=== PATIENT | female | born 1960 | race Caucasian/White ===

== ENCOUNTER 2017-11-02 15:17 | Emergency (ER) | payer OTHER ==
[2017-11-02 15:46] VITALS: BP 139/87; PULSE 72; TEMP 98.2; BMI 32.1
--- NOTE | 2017-11-02 15:57 | PDOC ---
History of Present Illness - General History Source: Patient Exam Limitations: No Limitations - History of Present Illness Initial Comments: 11/02/17 16:16 The patient is a 57 year old female with a significant past medical history of breast CA (s/p right sided mastectomy with tissue flap reconstruction via tummy tuck) who presents to the ED with complaints of abdominal pain since last night. The patient reports a sudden onset sharp left upper quadrant pain last night. She states her left upper quadrant cramped up and felt like a knot. She reports 2 episodes of sharp left upper quadrant cramping last night. Since then , she states her left upper quadrant pain is now dull and constant. Patient has baseline altered sensation in the abdomen secondary to abdominal surgery in the past. Patient states she recently had a sinus cold and diarrhea last week, now resolved. Denies fever or chills. Denies nausea, vomiting, or diarrhea. Denies dysuria or change in urinary output. Denies chest pain or shortness of breath. Denies any other symptoms. <Altagracia Vigil - Last Filed: 11/02/17 16:30> <Piper Harding - Last Filed: 11/03/17 12:49> - General Chief Complaint: Pain Stated Complaint: LUQ ABD PAIN Time Seen by Provider: 11/02/17 15:36 Past History <Altagracia Vigil - Last Filed: 11/02/17 16:30> - Past Medical History Asthma: Yes Cancer: Yes (BREAST) COPD: No - Suicide/Smoking/Psychosocial Hx Smoking History: Never smoked Have you smoked in the past 12 months: No Information on smoking cessation initiated: No Hx Alcohol Use: No Drug/Substance Use Hx: No Substance Use Type: None <Piper Harding - Last Filed: 11/03/17 12:49> - Past Medical History Allergies/Adverse Reactions: Allergies Allergy/AdvReac Type Severity Reaction Status Date / Time meperidine HCl [From Demerol] Allergy Vomiting Verified 11/02/17 18:42 Home Medications: Ambulatory Orders NK [No Known Home Medication] 11/02/17 Review of Systems - Review of Systems Comments:: 11/02/17 16:17 GENERAL/CONSTITUTIONAL: No fever or chills. No weakness. HEAD, EYES, EARS, NOSE AND THROAT: No change in vision. No ear pain or discharge. No sore throat. CARDIOVASCULAR: No chest pain or shortness of breath. RESPIRATORY: No cough, wheezing, or hemoptysis. GASTROINTESTINAL: + abdominal pain/cramping. No nausea, vomiting, diarrhea or constipation. GENITOURINARY: No dysuria, frequency, or change in urination. MUSCULOSKELETAL: No joint or muscle swelling or pain. No neck or back pain. SKIN: No rash NEUROLOGIC: No headache, vertigo, loss of consciousness, or change in strength/ sensation. ENDOCRINE: No increased thirst. No abnormal weight change. HEMATOLOGIC/LYMPHATIC: No anemia, easy bleeding, or history of blood clots. ALLERGIC/IMMUNOLOGIC: No hives or skin allergy. All Other Systems: Reviewed and Negative <Altagracia Vigil - Last Filed: 11/02/17 16:30> *Physical Exam - Vital Signs Last Vital Signs Temp Pulse Resp BP Pulse Ox 98.2 F 72 20 139/87 99 11/02/17 15:17 11/02/17 15:17 11/02/17 15:17 11/02/17 15:17 11/02/17 15:17 - Physical Exam Comments: 11/02/17 16:32 GENERAL: Awake, alert, and fully oriented, in no acute distress HEAD: No signs of trauma EYES: PERRLA, EOMI, sclera anicteric, conjunctiva clear ENT: Auricles normal inspection, hearing grossly normal, nares patent, oropharynx clear without exudates. Moist mucosa NECK: Normal ROM, supple, no lymphadenopathy, JVD, or masses LUNGS: Breath sounds equal, clear to auscultation bilaterally. No wheezes, and no crackles HEART: Regular rate and rhythm, normal S1 and S2, no murmurs, rubs or gallops ABDOMEN: + Left upper quadrant tenderness with small palpable mass in the left upper quadrant . normoactive bowel sounds. No guarding, no rebound. EXTREMITIES: Normal range of motion, no edema. No clubbing or cyanosis. No cords, erythema, or tenderness NEUROLOGICAL: Normal speech SKIN: Warm, Dry, normal turgor, no rashes or lesions noted. <Altagracia Vigil - Last Filed: 11/02/17 16:30> - Vital Signs Last Vital Signs Temp Pulse Resp BP Pulse Ox 98.2 F 72 20 139/87 99 11/02/17 15:17 11/02/17 15:17 11/02/17 15:17 11/02/17 15:17 11/02/17 15:17 <Piper Harding - Last Filed: 11/03/17 12:49> ED Treatment Course - LABORATORY CBC & Chemistry Diagram: 11/02/17 16:30 11/02/17 16:30 <Piper Harding - Last Filed: 11/03/17 12:49> Medical Decision Making - Medical Decision Making 11/02/17 19:[address] Batres. Awaiting CT a/p to further evaluate LUQ mass. I suspect that she has a hernia, and based on her description of pain yesterday, she may have had bowel in the hernia that then subsequently reduced, as she is not in severe pain at present. She does have a localized small mass, though, will evaluate. <Piper Harding - Last Filed: 11/03/17 12:49> *DC/Admit/Observation/Transfer - Attestations Scribe Attestion: 11/02/17 16:17 Documentation prepared by Altagracia Vigil, acting as medical instructor for Piper Harding MD <Altagracia Vigil - Last Filed: 11/02/17 16:30> <Piper Harding - Last Filed: 11/03/17 12:49> Diagnosis at time of Disposition: Abdominal wall hernia - Discharge Dispostion Disposition: HOME Condition at time of disposition: Stable - Patient Instructions Additional Instructions: You can take Tylenol or Motrin if needed for pain. Your CAT scan workup was all normal however you do have a small hernia in the area where you had pain and it may have been the result of your pain however now it is okay. Follow-up with a surgeon for evaluation to have it repaired as it is at increased risk of getting stuck and causing further pain. If you need a surgeon call Dr. Mccracken 's phone number is [phone]. Call his office Friday morning for an appointment Return to the emergency department immediately with ANY new, persistent or worsening symptoms. Continue any medications as previously prescribed by your physician. You should follow up with your primary doctor as soon as possible regarding today's emergency department visit. . Please make sure your doctor reviews the results of your emergency evaluation. Thank you for coming to the Emergency Department today for your care. It was a pleasure to see you today. Please note that your evaluation is INCOMPLETE until you follow-up with your doctor.
[2017-11-02] MEDS ORDERED: SODIUM CHLORIDE 1,000 ML IV STA (16:05)
[2017-11-02 16:52] LABS: BASO % 0.6 % (0-2.0); HEMATOCRIT 39.9 % (32.4-45.2); HEMOGLOBIN 13.6 GM/dl (10.7-15.3); LYMPH % 27.8 % (8-40); MCH 30.1 pg (25.7-33.7); MCHC 34.1 g/dl (32.0-36.0); MEAN CELL VOLUME 88.2 fl (80-96); MEAN PLT VOLUME 7.5 fl (7.5-11.1); MONO % 10.1 % (3.8-10.2); NEUT % 59.5 % (42.8-82.8); PLATELET COUNT 376 K/MM3 (134-434); RBC 4.52 M/mm3 (3.60-5.2); WHITE BLOOD COUNT 8.3 K/mm3 (4.0-10.8)
[2017-11-02 16:56] LABS: ALBUMIN 3.9 g/dl (3.5-5.0); ALK PHOS 98 U/L (32-92); ANION GAP 7 (8-16); BILIRUBIN,TOTAL 0.5 mg/dl (0.2-1.0); BLOOD UREA NITROGEN 26 mg/dl (7-18); CALCIUM 9.6 mg/dl (8.4-10.2); CHLORIDE 104 mmol/L (98-107); CO2 27 mmol/L (22-28); CREATININE 0.7 mg/dl (0.6-1.3); GLUCOSE,RANDOM 94 mg/dl (74-106); POTASSIUM 4.2 mmol/L (3.5-5.1); SGOT/AST 24 U/L (10-42); SGPT/ALT 26 U/L (10-40); SODIUM 138 mmol/L (136-145); TOT PROT 7.5 g/dl (6.4-8.3)
--- NOTE | 2017-11-02 19:20 | PDOC ---
*Physical Exam - Vital Signs Last Vital Signs Temp Pulse Resp BP Pulse Ox 98.2 F 72 20 139/87 99 11/02/17 15:17 11/02/17 15:17 11/02/17 15:17 11/02/17 15:17 11/02/17 15:17 ED Treatment Course - LABORATORY CBC & Chemistry Diagram: 11/02/17 16:30 11/02/17 16:30 - ADDITIONAL ORDERS Additional order review: Laboratory Results 11/02/17 16:30 Sodium 138 Potassium 4.2 Chloride 104 Carbon Dioxide 27 Anion Gap 7 L BUN 26 H Creatinine 0.7 D Creat Clearance w eGFR > 60 Random Glucose 94 Calcium 9.6 Total Bilirubin 0.5 AST 24 ALT 26 Alkaline Phosphatase 98 H Total Protein 7.5 Albumin 3.9 11/02/17 16:30 RBC 4.52 MCV 88.2 MCHC 34.1 RDW 12.0 MPV 7.5 Neutrophils % 59.5 Lymphocytes % 27.8 Monocytes % 10.1 Eosinophils % 2.0 Basophils % 0.6 - Medications Given in the ED: ED Medications Discontinued Medications Generic Name Dose Route Start Last Admin Trade Name Freq PRN Reason Stop Dose Admin Sodium Chloride 1,000 mls @ 1,000 mls/hr 11/02/17 16:05 11/02/17 16:42 Normal Saline - IV 11/02/17 17:04 1,000 mls/hr ASDIR STA Administration Progress Note - Progress Note Progress Note: Care of this patient was transferred to mo from Dr. Harding at 1900 hrs. Patient is a 57-year-old female who comes in complaining of some nonspecific lower abdominal pain. Patient has a workup that is nearly complete with the exception of a CAT scan. The CAT scan is to rule out incarcerated hernia. We'll follow-up results of CAT scan plan is patient will be discharged if CAT scan shows no acute pathology 19:50 CAT scan of the abdomen is negative for any acute pathology Patient will be discharged home and follow-up with her primary care doctor. *DC/Admit/Observation/Transfer Diagnosis at time of Disposition: Abdominal wall hernia - Discharge Dispostion Disposition: HOME Admit: No - Referrals - Patient Instructions Additional Instructions: You can take Tylenol or Motrin if needed for pain. Your CAT scan workup was all normal however you do have a small hernia in the area where you had pain and it may have been the result of your pain however now it is okay. Follow-up with a surgeon for evaluation to have it repaired as it is at increased risk of getting stuck and causing further pain. If you need a surgeon call Dr. Mccracken 's phone number is [phone]. Call his office Friday morning for an appointment Return to the emergency department immediately with ANY new, persistent or worsening symptoms. Continue any medications as previously prescribed by your physician. You should follow up with your primary doctor as soon as possible regarding today's emergency department visit. . Please make sure your doctor reviews the results of your emergency evaluation. Thank you for coming to the Emergency Department today for your care. It was a pleasure to see you today. Please note that your evaluation is INCOMPLETE until you follow-up with your doctor. - Post Discharge Activity
== END 2017-11-02 20:03 | disposition home or self-care (01) ==
LOC: FER 15:17
PROC: 3E0337Z Introduction of Electrolytic and Water Balance Substance into Peripheral Vein, Percutaneous Approach (ICD-10-PCS; principal; 2017-11-02)
DX: K43.9 Ventral hernia without obstruction or gangrene (principal)
CPT/HCPCS: 36415; 74177-TC; 80053; 85025; 99282-25

== ENCOUNTER 2019-01-27 21:17 | Emergency (ER) | payer OTHER ==
[2019-01-27 21:28] VITALS: BP 134/99; PULSE 73; TEMP 98.5; BMI 30.2
[2019-01-27] MEDS ORDERED: predniSONE 20 MG TABLET (UD) PO ONE (21:51)
[2019-01-27] MEDS ORDERED: KETOROLAC TROMETHAMINE 60 MG/2 ML VIAL IM ONE (21:51)
[2019-01-27] MEDS ORDERED: CYCLOBENZAPRINE HCL 10 MG TABLET (FP) PO ONE (21:52)
--- NOTE | 2019-01-27 21:54 | PDOC ---
Documentation entered by Pankaj Gutiérrez SCRIBE, acting as scribe for Libby Stanford MD. Libby Stanford MD: This documentation has been prepared by the Brock mcgee Daniel, SCRIBE, under my direction and personally reviewed by me in its entirety. I confirm that the documentation accurately reflects all work , treatment, procedures, and medical decision making performed by me. History of Present Illness - General Chief Complaint: Pain, Acute Stated Complaint: NECK PAIN History Source: Patient Exam Limitations: No Limitations - History of Present Illness Initial Comments: 01/27/19 21:54 The patient is a 59 year old female with a past medical history of breast cancer (s/p right sided mastectomy) here today for evaluation of neck pain. The patient reports that she has been having left sided neck pain for the past few days that radiates down to her shoulders bilaterally but mostly her left shoulder. 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 Patient denies headache, lightheadedness. Denies fever, chills. Denies chest pain, shortness of breath. Denies nausea, vomiting, diarrhea, abdominal pain. Denies neurologic symptoms. Allergies: meperidine HCL General: No fevers or chills, no weakness, no weight loss HEENT: No change in vision. No sore throat,. No ear pain CardioVascular: No chest pain or shortness of breath Respiratory:No cough, or wheezing. Gastrointestinal: no nausea, vomiting, diarrhea or constipation, No rectal bleeding Genitourinary: No dysuria, hematuria, or frequency Musculoskeletal: +neck and bilateral shoulder pain. Neurologic: No headache, vertigo, dizziness or loss of consciousness Psychiatric: nor depression Skin: No rashes or easy bruising Endocrine: no increased thirst or abnormal weight change Allergic: no skin or latex allergy All other systems reviewed and normal GENERAL: The patient is awake, alert, and fully oriented, in no acute distress. HEAD: Normal with no signs of trauma. EYES: Pupils equal, round and reactive to light, extraocular movements intact, sclera anicteric, conjunctiva clear. BACK: +significant spasms on left paraspinal and left shoulder area. no cervical or thoracic spine tenderness to palpation. EXTREMITIES: Normal range of motion, no edema. NEUROLOGICAL: Normal speech, normal gait. Neurologically intact. PSYCH: Normal mood, normal affect. SKIN: Warm, Dry, normal turgor, no rashes or lesions noted. Past History - Past Medical History Allergies/Adverse Reactions: Allergies Allergy/AdvReac Type Severity Reaction Status Date / Time meperidine HCl [From Demerol] Allergy Vomiting Verified 11/02/17 18:42 Home Medications: Ambulatory Orders NK [No Known Home Medication] 11/02/17 Asthma: Yes Cancer: Yes (BREAST) COPD: No - Suicide/Smoking/Psychosocial Hx Smoking History: Never smoked Have you smoked in the past 12 months: No Hx Alcohol Use: No Drug/Substance Use Hx: No Substance Use Type: None Review of Systems - Review of Systems Able to Perform ROS?: Yes *Physical Exam - Vital Signs Last Vital Signs Temp Pulse Resp BP Pulse Ox 98.5 F 73 14 134/99 100 01/27/19 21:23 01/27/19 21:23 01/27/19 21:23 01/27/19 21:23 01/27/19 21:23 *DC/Admit/Observation/Transfer Diagnosis at time of Disposition: Cervical radiculopathy - Discharge Dispostion Disposition: HOME Condition at time of disposition: Good Decision to Admit order: No - Referrals - Patient Instructions Additional Instructions: Get your prescriptions filled and take the prednisone taper as directed on the Medrol Dosepak. For the pain take naproxen 1 tablet twice a day with food. For the muscle spasm take Flexeril one tablet as often as 3 times a day. However it will make you drowsy so try to limit to the nighttime hours if you have to be awake and alert during the day. Return to the emergency department immediately with ANY new, persistent or worsening symptoms. Continue any medications as previously prescribed by your physician. You should follow up with your primary doctor as soon as possible regarding today's emergency department visit. . Please make sure your doctor reviews the results of your emergency evaluation. Thank you for coming to the Emergency Department today for your care. It was a pleasure to see you today. Please note that your evaluation is INCOMPLETE until you follow-up with your doctor. - Post Discharge Activity
[2019-01-27] MEDS ORDERED: KETOROLAC TROMETHAMINE 60 MG/2 ML VIAL ONE (22:00)
[2019-01-27] MEDS ORDERED: predniSONE 20 MG TABLET (UD) ONE (22:00)
[2019-01-27] MEDS ORDERED: CYCLOBENZAPRINE HCL 10 MG TABLET (FP) ONE (22:00)
== END 2019-01-27 22:13 | disposition home or self-care (01) ==
LOC: FER 21:17
PROC: 3E0233Z Introduction of Anti-inflammatory into Muscle, Percutaneous Approach (ICD-10-PCS; principal; 2019-01-27)
DX: M54.12 Radiculopathy, cervical region (principal); Z85.3 Personal history of malignant neoplasm of breast; J45.909 Unspecified asthma, uncomplicated
CPT/HCPCS: 99282-25

== ENCOUNTER 2019-11-14 15:45 | Emergency (ER) | payer OTHER ==
[2019-11-14] MEDS ORDERED: KETOROLAC TROMETHAMINE 60 MG/2 ML VIAL IM ONE (15:48)
[2019-11-14 15:52] VITALS: BP 142/90; PULSE 66; TEMP 98.4; BMI 32.9
[2019-11-14] MEDS ORDERED: KETOROLAC TROMETHAMINE 60 MG/2 ML VIAL ONE (15:52)
--- NOTE | 2019-11-14 15:52 | PDOC ---
History of Present Illness - General Chief Complaint: Headache Stated Complaint: HEADACHE Time Seen by Provider: 11/14/19 15:48 History Source: Patient Exam Limitations: No Limitations - History of Present Illness Initial Comments: 11/14/19 15:49 59 y/o female with hx of Migraines presents with headache today after putting down her dog. Under a lot of stress. Took Two Tylenol but still with headache. No N/V/D/C. No weakness or blurred vision. Denies fall or trauma or neck pain. Pt states that she cannot take oral NSAIDS due to hx of ulcer but Toradol IM has worked in past for her when this happens. Severity: Yes: mild Past History - Past Medical History Allergies/Adverse Reactions: Allergies Allergy/AdvReac Type Severity Reaction Status Date / Time meperidine HCl [From Demerol] Allergy Vomiting Verified 11/02/17 18:42 Home Medications: Ambulatory Orders Acetaminophen [Tylenol -] 1,000 mg PO ASDIR PRN 11/14/19 Asthma: Yes Cancer: Yes (BREAST) COPD: No - Psycho Social/Smoking Cessation Hx Smoking History: Never smoked Have you smoked in the past 12 months: No Number of Cigarettes Smoked Daily: 0 Hx Alcohol Use: No Drug/Substance Use Hx: No Substance Use Type: None Review of Systems - Review of Systems Able to Perform ROS?: Yes Is the patient limited Yakut proficient: No Constitutional: No: Chills, Fever Respiratory: No: Cough, Shortness of Breath Cardiac (ROS): No: Chest Pain ABD/GI: No: Nausea, Vomiting Neurological: Yes: Headache. No: Numbness, Tingling All Other Systems: Reviewed and Negative *Physical Exam - Physical Exam General Appearance: Yes: Nourished, Appropriately Dressed. No: Apparent Distress HEENT: positive: EOMI, GINGER, Normal ENT Inspection, Normal Voice, Symmetrical Neck: positive: Trachea midline, Normal Thyroid, Supple. negative: Tender, Rigid, Carotid bruit Respiratory/Chest: positive: Lungs Clear, Normal Breath Sounds. negative: Chest Tender, Respiratory Distress Cardiovascular: positive: Regular Rhythm, Regular Rate, S1, S2. negative: Edema , JVD, Murmur Vascular Pulses: Femoral (R): 4+, Femoral (L): 4+, Carotid (R): 4+, Carotid (L) : 4+, Dorsalis-Pedis (R): 4+, Doralis-Pedis (L): 4+ Gastrointestinal/Abdominal: positive: Normal Bowel Sounds, Flat, Soft. negative : Tender, Organomegaly Lymphatic: negative: Adenopathy, Tenderness, Other Musculoskeletal: positive: Normal Inspection. negative: CVA Tenderness Extremity: positive: Normal Capillary Refill, Normal Inspection, Normal Range of Motion Integumentary: positive: Normal Color, Dry, Warm Neurologic: positive: shells inspector II-XII NML intact, Fully Oriented, Alert, Normal Mood/ Affect, Normal Response, Motor Strength 5/5 (strength 5+/5 b/l in UE and LE, no focal deficits noted) ED Progress Note - Progress Note Progress Note: 11/14/19 15:51 59 y/o female with headache, will give Toradol 11/14/19 16:08 Pt is feeling better Will discharge home to continue with Tylenol If worsen return to ER Pt is in agreement with plan Discharge - Discharge Information Problems reviewed: Yes Clinical Impression/Diagnosis: Migraine headache Qualifiers: Migraine type: unspecified Status migrainosus presence: without status migrainosus Intractability: not intractable Qualified Code(s): G43.909 - Migraine, unspecified, not intractable, without status migrainosus Condition: Improved Disposition: HOME - Admission No - Follow up/Referral - Patient Discharge Instructions Patient Printed Discharge Instructions: DI for Migraine Additional Instructions: Fluids, rest, Tylenol If worsen return to ER - Post Discharge Activity
== END 2019-11-14 16:15 | disposition home or self-care (01) ==
LOC: FER 15:45
PROC: 3E0233Z Introduction of Anti-inflammatory into Muscle, Percutaneous Approach (ICD-10-PCS; principal; 2019-11-14)
DX: G43.909 Migraine, unspecified, not intractable, without status migrainosus (principal); Z88.8 Allergy status to other drugs, medicaments and biological substances
CPT/HCPCS: 99284-25

== ENCOUNTER 2021-12-23 16:37 | Emergency (ER) | payer OTHER ==
[2021-12-23] MEDS ORDERED: FAMOTIDINE 20 MG/50 ML IVPB 20 MG/50 ML MG IVPB ONE ×2 (16:55→17:05)
[2021-12-23] MEDS ORDERED: SODIUM CHLORIDE 0.9% 500 ML INFUS.BAG IV ONE (16:55)
[2021-12-23] MEDS ORDERED: METOCLOPRAMIDE HCL INJECTION 10 MG/2 ML VIAL IVPB ONE (16:55)
[2021-12-23] MEDS ORDERED: METOCLOPRAMIDE HCL INJECTION 10 MG/2 ML VIAL ONE (17:04)
[2021-12-23] MEDS ORDERED: ACETAMINOPHEN 1000 MG/100 ML BAG IVPB ONE (17:05)
[2021-12-23 17:27] LABS: ALBUMIN 4.2 g/dl (3.4-5.0); BILIRUBIN,TOTAL 0.7 mg/dl (0.2-1); CALCIUM 10.1 mg/dl (8.5-10); CREATININE 0.8 mg/dl (0.55-1.3)
[2021-12-23 17:32] VITALS: BP 150/84; PULSE 88; TEMP 98.2; BMI 32.0
[2021-12-23] MEDS ORDERED: ACETAMINOPHEN INJECTION 100 ML IVPB ONE (17:36)
[2021-12-23] MEDS ORDERED: MAG HYDROX/AL HYDROX/SIMETH 30 ML UNIT-DOSE CUP PO ONE (18:02)
[2021-12-23] MEDS ORDERED: MAG HYDROX/AL HYDROX/SIMETH 30 ML UNIT-DOSE CUP ONE (18:13)
[2021-12-23 18:52] LABS: BASO % 0.2 % (0-2.0); EOS % 2.3 % (0-4.5); HEMATOCRIT 44.2 % (32.4-45.2); HEMOGLOBIN 14.8 GM/dL (10.7-15.3); LYMPH % 9.1 % (8-40); MCH 29.6 pg (25.7-33.7); MCHC 33.5 g/dl (32.0-36.0); MEAN CELL VOLUME 88.5 fl (80-96); MEAN PLT VOLUME 7.4 fl (7.5-11.1); MONO % 4.3 % (3.8-10.2); NEUT % 84.1 % (42.8-82.8); PLATELET COUNT 389 10^3/uL (134-434); RDW 14.1 % (11.6-15.6); WHITE BLOOD COUNT 12.8 K/mm3 (4.0-10.0)
[2021-12-23] MEDS ORDERED: AMPICILLIN NA/SULBACTAM NA 1.5 GM in SODIUM CHLORIDE 100 ML IVPB ONE (19:55)
[2021-12-23] MEDS ORDERED: AMPICILLIN NA/SULBACTAM NA 1.5 GM VIAL ONE (19:57)
[2021-12-23] MEDS ORDERED: morphine SULFATE 4 MG/ML VIAL ONE (20:46)
[2021-12-23] MEDS ORDERED: ONDANSETRON 4 MG/2 ML VIAL ONE (20:46)
[2021-12-23] MEDS ORDERED: ONDANSETRON 4 MG/2 ML VIAL IVPB ONE (20:57)
[2021-12-23] MEDS ORDERED: KETOROLAC TROMETHAMINE 15 MG/ML VIAL ONE (21:06)
== END 2021-12-23 21:31 | disposition home or self-care (01) ==
LOC: FER 16:37
PROC: 3E033GC Introduction of Other Therapeutic Substance into Peripheral Vein, Percutaneous Approach (ICD-10-PCS; principal; 2021-12-23)
DX: R42 Dizziness and giddiness (principal); R51.9 Headache, unspecified
CPT/HCPCS: 36415; 71046-TC-FY; 80053; 81003; 83735; 84439; 84443; 84484; 85025; 87086; 87804; 93005; 99285-25; C9803-CS; U0003; U0005

== ENCOUNTER 2023-09-01 12:48 | Emergency (ER) | payer OTHER ==
[2023-09-01 12:59] VITALS: BP 154/85; PULSE 78; RESP 18; TEMP 97.8; BMI 32.0
[2023-09-01] MEDS ORDERED: CYCLOBENZAPRINE HCL 10 MG TABLET (FP) PO ONE (13:15)
[2023-09-01] MEDS ORDERED: KETOROLAC TROMETHAMINE 60 MG/2 ML VIAL IM ONE (13:15)
[2023-09-01] MEDS ORDERED: KETOROLAC TROMETHAMINE 60 MG/2 ML VIAL ONE (13:24)
== END 2023-09-01 14:40 | disposition home or self-care (01) ==
LOC: FER 12:48
PROC: 3E0233Z Introduction of Anti-inflammatory into Muscle, Percutaneous Approach (ICD-10-PCS; principal; 2023-09-01)
DX: M25.512 Pain in left shoulder (principal); M54.2 Cervicalgia; M75.102 Unspecified rotator cuff tear or rupture of left shoulder, not specified as traumatic
CPT/HCPCS: 73030-TC-LT-FY; 99284-25